=== PATIENT | male | born 1970 | race African-American/Black ===

== ENCOUNTER 2025-03-02 22:53 | Emergency (ER) | payer OTHER ==
[2025-03-02 23:56] LABS: #Basophils 0.03 10x3/uL (0.0-0.2); #Eosinophils 0.17 10x3/uL (0.0-0.7); #Monocytes 0.46 10x3/uL (0.11-0.59); #Neutrophils 2.70 10x3/uL (1.40-6.50); %Basophils 0.5 % (0.0-1.0); %Eosinophils 3.1 % (0.0-10.0); %Lymphocytes 38.5 % (21.0-51.0); %Monocytes 8.4 % (0.0-10.0); %Neutrophils 49.1 % (42.0-75.0); Hematocrit 35.2 % (42.0-52.0); Hemoglobin 11.6 g/dL (14.0-18.0); Mean Corpuscular Hemoglobin 26.8 pg (27.0-31.0); Mean Corpuscular Volume 81.3 fL (78.0-98.0); Platelet Count 301 10x3/uL (130-400); Red Blood Cell (RBC) Count 4.33 mill/uL (4.70-6.10); White Blood Cell (WBC) Count 5.50 10x3/uL (4.8-10.8)
[2025-03-03 00:08] LABS: Lipase 11 U/L (8-78)
[2025-03-03 00:10] LABS: ALT (SGPT) 26 U/L (Less than 45); AST (SGOT) 30 U/L (11-34); Albumin 4.0 g/dL (3.1-4.5); Alkaline Phosphatase 87 U/L (40-110); Anion Gap 20 mmol/L (10-20); BUN (Urea Nitrogen) 14 mg/dL (8.4-25.7); Bilirubin, Total 0.5 mg/dL (0.3-1.2); CK (CPK) 296 U/L (30-200); Calc. Creatinine Clearance 0 mL/min (70-130); Calcium 8.6 mg/dL (7.8-10.44); Carbon Dioxide 20 mmol/L (22-29); Chloride 101 mmol/L (98-107); Globulin 2.8 g/dL (2.4-3.5); Glucose 96 mg/dL (70-105); Potassium 3.5 mmol/L (3.5-5.1); Sodium 137 mmol/L (136-145)
[2025-03-03 00:11] LABS: Acetaminophen Less than 10 mcg/mL (Less than 10); INR-International Normal Ratio 1.0; Prothrombin Time 13.4 sec (12.0-14.7); Salicylate Less than 8.0 mg/dL (Less than 8.0)
[2025-03-03 00:12] LABS: PTT 26.2 sec (22.9-36.1)
[2025-03-03 00:50] LABS: Cocaine Metabolite Screen PRELIM POSITIVE (Negative); THC/Cannabinoid Screen PRELIM POSITIVE (Negative); Tricyclic Screen Negative (Negative)
== END 2025-03-03 02:51 | disposition home or self-care (01) ==
LOC: ERS 22:53
DX: S02.40FA Zygomatic fracture, left side, initial encounter for closed fracture (principal); F10.129 Alcohol abuse with intoxication, unspecified; I10 Essential (primary) hypertension; Z23 Encounter for immunization; D64.9 Anemia, unspecified; V00.141A Fall from scooter (nonmotorized), initial encounter
CPT/HCPCS: 70450; 70486; 72125; 80053; 80306; 80307; 82550; 83690; 85025; 85610; 85730; 90471; 90715; 93005

== ENCOUNTER 2025-03-23 10:20 | Emergency (ER) | payer OTHER ==
[2025-03-23 11:42] LABS: Bacteria/HPF None Seen HPF (None Seen); CAUTI Indications for Culture Pelvic or flank pain; Glucose, Urine (Dipstick) Normal (Negative); Leukocyte Negative Leu/uL (Negative); Protein, Urine (Dipstick) 20 mg/dL (Neg-Trace); RBC/HPF 0-3 HPF (0-3); Specific Gravity, Urine 1.022 (1.002-1.036); WBC/HPF 0-3 HPF (0-3)
[2025-03-23 11:44] LABS: Urine Culture Reflex No No
== END 2025-03-23 14:11 | disposition home or self-care (01) ==
LOC: ERS 10:20
DX: M16.11 Unilateral primary osteoarthritis, right hip (principal); I10 Essential (primary) hypertension; Z79.899 Other long term (current) drug therapy
CPT/HCPCS: 72170; 81001; 96372; 99284